=== PATIENT | female | born 1985 | race Caucasian/White ===

== ENCOUNTER 2023-01-25 20:09 | Emergency (ER) | payer BC, MEDICAID ==
[~2023-01-25] VITALS: Ht 165.1 cm; Wt 66.2 kg
[2023-01-25 20:27] VITALS: BP 129/85; PULSE 109; RESP 16; TEMP 97.4; O2SAT 100
--- NOTE | 2023-01-25 20:35 | NUR ---
TO BED 8 FOLLOWING TRIAGE AFTER OBTAINING UA
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
[2023-01-25 21:10] VITALS: O2SAT 100
[2023-01-25 21:17] LABS: APPEARANCE,URINE CLEAR (CLEAR); BILIRUBIN,URINE NEGATIVE (NEGATIVE); BLOOD, URINE 1+ (NEGATIVE); COLOR,URINE YELLOW (YELLOW); LEUKOCYTE ESTERASE ,URINE NEGATIVE (NEGATIVE); NITRITE, URINE NEGATIVE (NEGATIVE); UGLUCOSE NEGATIVE (NEGATIVE)
--- NOTE | 2023-01-25 22:39 | NUR ---
PATIENT ELOPED FROM FACILITY. DISCHARGE INSTRUCTIONS NOT GIVEN TO PATIENT. DR. HAMILTON NOTIFIED.
== END 2023-01-25 22:39 | disposition left against medical advice (07) ==
LOC: MED 20:09
DX: R53.1 Weakness (principal); R10.9 Unspecified abdominal pain; Z53.21 Procedure and treatment not carried out due to patient leaving prior to being seen by health care provider
CPT/HCPCS: 81001; 99281; 99283